=== PATIENT | female | born 1960 | race Hispanic/Latino ===

== ENCOUNTER 2022-04-11 14:01 | Emergency (ER) | payer MEDICAID ==
[2022-04-11 16:07] VITALS: BP 147/68
--- NOTE | 2022-04-11 16:42 | XRay Report ---
RIGHT SHOULDER 4 VIEW(S) INDICATION / CLINICAL INFORMATION: FALL. COMPARISON: None available. FINDINGS: BONES / JOINT(S): Acute nondisplaced vertically oriented fracture of the lateral proximal right humer us involving the greater tuberosity. No other acute fracture or dislocation. 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 The more d istal right humerus is intact without additional fracture. No dislocation. SOFT TISSUES: No significant abnormality. IMPRESSION: 1. Acute nondisplaced fracture involving the greater tuberosity of the proximal right humerus, as det gracia above. RIGHT HUMERUS 2 VIEW(S) INDICATION / CLINICAL INFORMATION: FALL COMPARISON: None available. FINDINGS: BONES / JOINT(S): Acute nondisplaced vertically oriented fracture of the lateral proximal right humer us involving the greater tuberosity. No other acute fracture or dislocation. 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 The more d istal right humerus is intact without additional fracture. No dislocation. SOFT TISSUES: No significant abnormality. IMPRESSION: 1. Acute nondisplaced fracture involving the greater tuberosity of the proximal right humerus, as det gracia above. Signer Name: Aaron Prado MD Signed: 04/11/2022 4:37 PM Workstation Name: [email or web address]
[2022-04-11] MEDS ORDERED: ONDANSETRON 4 MG ODT TAB PO ONE (18:37)
[2022-04-11] MEDS ORDERED: HYDROcodone/ACETAMINOPHEN 7.5-325MG TAB PO ONE (18:37)
[2022-04-11] MEDS ORDERED: IBUPROFEN 600 MG TAB PO ONE (18:37)
--- NOTE | 2022-04-11 19:38 | Emergency Department Report ---
Upper Extremity - HPI Chief Complaint: Extremity Injury, Upper Stated Complaint: ARM PAIN Upper Extremity: Right Shoulder (pain), Right Arm (pain) Occurred When: Today (10 hours ago) Mechanism: Fall Severity: severe Symptoms: Yes Pain with Movement (due to pain), Yes Limited Range of Movement (due to pain), No Numbness, No Weakness, No Swelling, No Bruising/Ecchymosis, No Laceration or Abrasion Other History: Patient is a 61-year-old female who presents to the ED with complaint of acute onset persistent left shoulder and left upper arm pain after she slipped off the chair and fell down landing on her right arm on the deck about 10 hours ago. Patient states that the pain has been constant and persistent and that she is unable to perform any active range of motion with the right arm. Patient denies head or neck injuries, back pain, chest pain, shortness of breath, nausea and vomiting, numbness or tingling or weakness of upper extremities bilaterally or hip pain and loss of consciousness. ED Review of Systems ROS: Stated complaint: ARM PAIN Other details as noted in HPI Constitutional: denies: chills, fever Eyes: denies: eye pain, eye discharge, vision change ENT: denies: ear pain, throat pain Respiratory: denies: cough, shortness of breath, wheezing Cardiovascular: denies: chest pain, palpitations Endocrine: no symptoms reported Gastrointestinal: denies: abdominal pain, nausea, diarrhea Genitourinary: denies: urgency, dysuria, discharge Musculoskeletal: arthralgia (Right shoulder and upper arm pain). denies: back pain, joint swelling Skin: denies: rash, lesions Neurological: denies: headache, weakness, paresthesias Psychiatric: denies: anxiety, depression Hematological/Lymphatic: denies: easy bleeding, easy bruising ED Past Medical Hx - Medications Home Medications: Home Medications Medication Instructions Recorded Confirmed Last Taken Type Docusate Sodium [Colace CAP] 100 mg PO BID PRN #60 capsule 04/11/22 Unknown Rx HYDROcodone/APAP 5-325 [Sanford 1 each PO Q6HR PRN #12 tablet 04/11/22 Unknown Rx 5/325] Ibuprofen [Motrin] 800 mg PO Q8HR PRN #30 tablet 04/11/22 Unknown Rx Upper Extremity Exam - Exam General: Vital signs noted. No distress. Alert and acting appropriately. Head and Torso: No HEENT Abnormality, No Neck Tenderness, No Chest/Lungs Abnormality, No Abdominal Tenderness, No Back Tenderness Shoulder Exam: Yes Shoulder Tenderness (Right shoulder), No Clavicle Tenderness, No Normal Range of Motion in Shoulder (Limited due to pain), No Shoulder Deformity, No AC Joint Tenderness Arm Exam: Yes Arm/Humerus Tenderness (Right upper arm tenderness), No Arm Deformity Elbow: Yes Normal Range of Motion in Elbow, No Elbow Tenderness, No Elbow Deformity Forearm: No Forearm Tenderness, No Forearm Deformity, No Pain with Pronation, No Pain with Supination Wrist: Yes Normal ROM in Wrist, No Wrist Tenderness, No Wrist Deformity, No Snuffbox Tenderness, No Pain with Axial Thumb Compression Hand: Yes Normal ROM in Digit(s), No Hand Tenderness, No Hand Deformity, No Digit Tenderness, No Digit(s) Deformity, No Tendon Dysfunction CMS Exam: No Broken Skin, No Normal Distal Pulses, No Normal Capillary Refill, No Normal Distal Sensation ED Course Vital Signs 04/11/22 16:03 Temperature 98.7 F Pulse Rate 113 H Respiratory 20 Rate Blood Pressure 147/68 [Right] O2 Sat by Pulse 94 Oximetry ED Medical Decision Making - Radiology Data Radiology results: report reviewed, image reviewed [facility] [address] [place] [address] XRay Report Signed Patient: HUYEN HURTADO MR#: [id number] : 1960 Acct:[id number] Age/Sex: 61 / F ADM Date: 04/11/22 Loc: ED Attending Dr: Ordering Physician: EDGAR BOWEN MD Date of Service: 04/11/22 Procedure(s): XR shoulder 2+V RT Accession Number(s): [id number] cc: ED MD ANDRÉS Fluoro Time In Minutes: RIGHT SHOULDER 4 VIEW(S) INDICATION / CLINICAL INFORMATION: FALL. COMPARISON: None available. FINDINGS: BONES / JOINT(S): Acute nondisplaced vertically oriented fracture of the lateral proximal right humerus involving the greater tuberosity. No other acute fracture or dislocation. Moderate acromioclavicular joint degenerative osteoarthritis without significant glenohumeral degenerative change. The more distal right humerus is intact without additional fracture. No dislocation. SOFT TISSUES: No significant abnormality. IMPRESSION: 1. Acute nondisplaced fracture involving the greater tuberosity of the proximal right humerus, as detailed above. RIGHT HUMERUS 2 VIEW(S) INDICATION / CLINICAL INFORMATION: FALL COMPARISON: None available. FINDINGS: BONES / JOINT(S): Acute nondisplaced vertically oriented fracture of the lateral proximal right humerus involving the greater tuberosity. No other acute fracture or dislocation. Moderate acromiocl avicular joint degenerative osteoarthritis without significant glenohumeral degenerative change. The more distal right humerus is intact without additional fracture. No dislocation. SOFT TISSUES: No significant abnormality. IMPRESSION: 1. Acute nondisplaced fracture involving the greater tuberosity of the proximal right humerus, as detailed above. Signer Name: Neda Prado MD Signed: 04/11/2022 4:37 PM Workstation Name: [id number] Transcribed By: RH Dictated By: NEDA PRADO MD Electronically Authenticated By: NEDA PRADO MD Signed Date/Time: 04/11/221636 DD/ 33 TD/TT: - Medical Decision Making This is a 61-year-old female who presents to the ED with complaint of acute onset persistent left shoulder and left upper arm pain after she slipped off the chair and fell down landing on her right arm on the deck about 10 hours ago. Patient states that the pain has been constant and persistent and that she is unable to perform any active range of motion with the right arm. Patient was treated for pain in the ED, and right shoulder and right humerus x-rays showed acute nondisplaced vertically oriented fracture of the lateral proximal right humerus involving the greater tuberosity. No other acute fracture or dislocation. Moderate acromioclavicular joint degenerative osteoarthritis without significant glenohumeral degenerative change. The more distal right humerus is intact without additional fracture. No dislocation. Right shoulder and humerus was immobilized in a sling and the patient was discharged home on pain medications and given referral to the orthopedic surgeon Dr. Hamilton for follow-up. Patient was advised to contact Dr. Hamilton's office first thing in the morning to schedule a follow-up appointment. Patient is advised to return to the ED immediately if symptoms get worse. - Differential Diagnosis Shoulder fracture; humerus fracture; arm contusion; shoulder sprain Critical care attestation.: If time is entered above; I have spent that time in minutes in the direct care of this critically ill patient, excluding procedure time. ED Disposition Clinical Impression: Nondisplaced fracture of proximal end of right humerus, Contusion of right upper arm, initial encounter Disposition: HOME / SELF CARE / HOMELESS Is pt being admited?: No Does the pt Need Aspirin: No Condition: Stable Instructions: Cast or Splint Care, Adult, [id number], Contusion, [id number], Cast or Splint Care, Adult, Humerus Fracture Treated With Immobilization, [id number] Additional Instructions: The right humerus and shoulder x-rays showed a nondisplaced proximal humerus fracture at the glenohumeral joint. Therefore take pain medication as needed, follow-up with your orthopedic surgeon Dr. Mello for further evaluation. Contact Dr. Mello's office first thing in the morning on FridaysApril 12, 2022 to schedule a follow-up appointment. Return to the ED immediately if symptoms get worse. Prescriptions: Docusate Sodium [Colace CAP] 100 mg PO BID PRN #60 capsule PRN Reason: Constipation Ibuprofen [Motrin] 800 mg PO Q8HR PRN #30 tablet PRN Reason: Pain , Severe (7-10) HYDROcodone/APAP 5-325 [Sanford 5/325] 1 each PO Q6HR PRN #12 tablet PRN Reason: Pain Referrals: ALEX MELLO MD [Referring] - 3-5 Days Forms: Work/School Release Form(ED) Time of Disposition: 19:42 Print Language: SRI LANKAN
== END 2022-04-11 20:15 | disposition home or self-care (01) ==
LOC: ED 14:01
DX: S42.201A Unspecified fracture of upper end of right humerus, initial encounter for closed fracture (principal); S40.021A Contusion of right upper arm, initial encounter; X58.XXXA Exposure to other specified factors, initial encounter; Y93.89 Activity, other specified; Y92.89 Other specified places as the place of occurrence of the external cause; Y99.8 Other external cause status
CPT/HCPCS: 99283; J3490; Q0162